=== PATIENT | female | born 1950 | race Two or more races ===

== ENCOUNTER 2017-08-20 07:50 | Outpatient (RCR) | payer OTHER | END 2017-08-21 | disposition home or self-care (01) | LOC: PTY 07:50 | DX: M79.1 Myalgia (principal); Z91.81 History of falling ==

== ENCOUNTER 2017-09-20 07:17 | Outpatient (RCR) | payer OTHER | END 2017-09-21 | disposition home or self-care (01) | LOC: PTY 07:17 | PROVIDERS: ATTEND Internal Medicine | DX: M79.1 Myalgia (principal); Z91.81 History of falling ==

== ENCOUNTER 2017-10-18 08:15 | Outpatient (RCR) | payer OTHER | END 2017-10-21 | disposition home or self-care (01) | LOC: PTY 08:15 | PROVIDERS: ATTEND Internal Medicine | DX: M79.1 Myalgia (principal) ==

== ENCOUNTER 2017-12-01 09:58 | Outpatient (RCR) | payer OTHER | END 2017-12-22 | disposition home or self-care (01) | LOC: PTY 09:58 | PROVIDERS: ATTEND Internal Medicine | DX: M75.50 Bursitis of unspecified shoulder (principal) | CPT/HCPCS: 97035; 97110; 97140; 97162; G0283 ==

== ENCOUNTER 2018-01-04 08:15 | Outpatient (RCR) | payer OTHER | END 2018-01-19 | disposition home or self-care (01) | LOC: PTY 08:15 | PROVIDERS: ATTEND Internal Medicine | DX: M75.50 Bursitis of unspecified shoulder (principal) | CPT/HCPCS: 97035; 97110; 97140; G0283 ==

== ENCOUNTER 2018-01-21 08:33 | Outpatient (RCR) | payer OTHER | END 2018-02-19 | disposition home or self-care (01) | LOC: PTY 08:33 | PROVIDERS: ATTEND Internal Medicine | DX: M75.50 Bursitis of unspecified shoulder (principal) | CPT/HCPCS: 97035; 97110; 97140; G0283 ==